=== PATIENT | female | born 1940 | race Caucasian/White ===

== ENCOUNTER 2019-01-25 19:16 | Emergency (ER) | payer OTHER ==
[~2019-01-25] VITALS: Ht 149.9 cm; Wt 68.0 kg
[2019-01-25] MEDS ORDERED: FORTAMET500 MG (19:35)
[2019-01-25] MEDS ORDERED: SYNTHROID50 MCG (19:35)
[2019-01-25] MEDS ORDERED: ATORVASTATIN CA40 MG (19:59)
[2019-01-25] MEDS ORDERED: ALLOPURINOL100 MG (19:59)
[2019-01-25] MEDS ORDERED: PENTOXIFYLLINE400 MG (20:00)
[2019-01-25] MEDS ORDERED: ENALAPRIL-HCTZ1 EACH (20:00)
[2019-01-25] MEDS ORDERED: [UNRECOGNIZED DRUG - OTHER] (20:01)
[2019-01-25] MEDS ORDERED: VITAMIN D10000 UNIT (20:02)
[2019-01-25] MEDS ORDERED: CALCIUM +D & M1 EACH (20:03)
[2019-01-25] MEDS ORDERED: LEVOTHYROXINE (20:04)
== END 2019-01-25 22:26 | disposition home or self-care (01) ==
LOC: ER 19:16
DX: L27.2 Dermatitis due to ingested food (principal); T78.1XXA Other adverse food reactions, not elsewhere classified, initial encounter; X58.XXXA Exposure to other specified factors, initial encounter

== ENCOUNTER 2019-01-27 08:16 | Emergency (ER) | payer OTHER ==
[~2019-01-27] VITALS: Ht 149.9 cm; Wt 68.0 kg
[~2019-01-27 08:16] MED LIST: ALLOPURINOL100 MG; ATORVASTATIN CA40 MG; CALCIUM +D & M1 EACH; ENALAPRIL-HCTZ1 EACH; FORTAMET500 MG; LEVOTHYROXINE; PENTOXIFYLLINE400 MG; SYNTHROID50 MCG; VITAMIN D10000 UNIT; [UNRECOGNIZED DRUG - OTHER]
== END 2019-01-27 11:59 | disposition home or self-care (01) ==
LOC: ER 08:16
DX: L50.8 Other urticaria (principal)